=== PATIENT | female | born 1975 | race African-American/Black ===

== ENCOUNTER 2019-12-24 14:38 | Emergency (ER) | payer OTHER, SELFPAY ==
--- NOTE | ~2019-12-24 | XR_ITS ---
EXAMINATION: XR chest 2V DATE: 12/24/2019 15:26 INDICATION: Cough. Smoker. TECHNIQUE: frontal and lateral views of the chest were obtained. COMPARISON: None FINDINGS: The lungs are clear with no focal airspace opacities, pulmonary edema, pleural effusion or pneumothor ax. The cardiomediastinal silhouette is normal. Implantable hall monitor at the medial left anteri or chest wall. IMPRESSION: 1. No acute cardiopulmonary disease. Reviewed, dictated and finalized at location A.
[2019-12-24 14:50] VITALS: BP 134/76; PULSE 100; RESP 16; TEMP 36.4; O2SAT 100
--- NOTE | 2019-12-24 15:18 | ED.URI ---
HPI - URI/Sore Throat General Chief Complaint: Upper Respiratory Infection Stated Complaint: cough/vomiting/bodyaches Time Seen by Provider: 12/24/19 15:03 Source: patient and RN notes reviewed Mode of arrival: ambulatory Limitations: no limitations History of Present Illness HPI Narrative: Patient presents today with a 2-day history of productive cough, body aches, sweats and chills, vomiting, and diarrhea. Denies known fever, shortness of breath, sore throat. History of asthma, hypertension, diabetes. She has been using her albuterol inhaler at home, but has not been using any other [id number] medications for her current symptoms. She smokes 0.5 packs/day. MD elicited complaint: cough Related Data Home Medications Medication Instructions Recorded Confirmed aspirin 12/24/19 escitalopram oxalate mg 12/24/19 gabapentin 12/24/19 hydrochlorothiazide 12/24/19 insulin lispro protamin-lispro SUBCUT 12/24/19 [Humalog Mix 75-25(U-100)Insuln] lisinopril 12/24/19 metformin mg 12/24/19 naproxen 12/24/19 tramadol mg 12/24/19 Allergies Allergy/AdvReac Type Severity Reaction Status Date / Time No Known Allergies Allergy Verified 05/26/18 11:43 Review of Systems Review of Systems: Narrative: CONSTITUTIONAL: Denies fever. + Body aches, sweats, chills EYES: Denies visual changes, redness, or discharge. ENT: Denies rhinorrhea, congestion, sore throat, or otalgia. CARDIOVASCULAR: Denies chest pain, palpitations, or edema. RESPIRATORY: Denies dyspnea.+ Cough GASTROINTESTINAL: Denies abdominal pain. + Nausea, vomiting, diarrhea GENITOURINARY: Denies dysuria or hematuria. SKIN: Denies rash, itching, or wounds. MUSCULOSKELETAL: Denies back pain, joint pain, or myalgia. NEUROLOGIC: Denies headache, numbness, tingling, or weakness. PSYCH: Denies depression or anxiety. [facility] Past Medical History Medical History (Updated 12/24/19 @ 16:05 by Elise Toscano, [employer], ) Asthma Diabetes History of CVA (cerebrovascular accident) Hypertension Comments At time of signature, I have reviewed and agree with nursing past medical, surgical, social and family history unless otherwise noted. Please see nursing chart for further information. There is no relevant family history pertinent to the presenting complaint Exam Narrative: Exam Narrative: GENERAL: Ill-appearing, well-nourished, and in no acute distress. HEAD: Normocephalic, atraumatic. EYES: EOMI. No redness or drainage. Conjunctivae normal. ENT: Mucous membranes pink and moist. Nares clear. No rhinorrhea. TMs normal bilaterally. Throat normal. Uvula midline. NECK: Normal AROM. Supple. No lymphadenopathy. CHEST: No respiratory distress. Crackles in the right lower lobes, otherwise clear. HEART: Regular rate and rhythm. No murmur appreciated. Normal peripheral pulses. MUSCULOSKELETAL: No bony tenderness. EXTREMITIES: Normal range of motion. No edema. SKIN: Warm, dry, no rash. NEURO: No focal deficits. Alert and oriented x3. Gait steady. PSYCH: Normal affect. No signs of depression or anxiety. Course Course Emergency Course: 1602: Patient states her nausea has improved after the Zofran. Discussed chest x-ray results and plan for discharge. Vital Signs Vital signs: Vital Signs Temperature 97.6 F 12/24/19 14:50 Pulse Rate 100 12/24/19 14:50 Respiratory Rate 16 12/24/19 14:50 Blood Pressure 134/76 12/24/19 14:50 Pulse Oximetry 100 12/24/19 14:50 Temperature 97.6 F 12/24/19 14:50 Pulse Rate 100 12/24/19 14:50 Respiratory Rate 16 12/24/19 14:50 Blood Pressure 134/76 12/24/19 14:50 Pulse Oximetry 100 12/24/19 14:50 Reviewed. Pt has been instructed to follow up with her PCP regarding her elevated blood pressure today. MDM - URI/Sore Throat Differential Diagnosis Differential diagnosis: Likely upper respiratory infection, otitis media, viral infection, bronchitis, influenza and other (Pneumonia) Lab Data At
[2019-12-24] MEDS: ONDANSETRON HCL ODT 4 MG TABLET 8 MG SUBLINGUAL (15:25)
== END 2019-12-24 16:12 | disposition home or self-care (01) ==
PROVIDERS: Emergency Provider Nurse Practitioner; PCP Family Medicine
DX: B34.9 Viral infection, unspecified (principal); J45.909 Unspecified asthma, uncomplicated; E11.9 Type 2 diabetes mellitus without complications; I10 Essential (primary) hypertension; Z86.73 Personal history of transient ischemic attack (TIA), and cerebral infarction without residual deficits
CPT/HCPCS: 71046; 87804; 99213; A9270; G0463

== ENCOUNTER 2021-12-14 12:27 | Emergency (ER) | payer OTHER, SELFPAY ==
--- NOTE | ~2021-12-14 | XR_ITS ---
EXAMINATION: XR ankle RT min 3V INDICATION: Right ankle. TECHNIQUE: Right ankle pain and swelling COMPARISON: None available FINDINGS: Bone alignment is normal. There is no fracture. There is mild soft tissue swelling of ankle . Posterior and plantar calcaneal enthesophytes are noted. IMPRESSION: 1. Ankle soft tissue swelling without acute osseous abnormality. Reviewed, dictated and finalized at location B. [employer] TRANSCRIPTIONIST
--- NOTE | 2021-12-14 12:32 | ED.LOWEXIN ---
HPI - Extremity Injury (Lower) General Chief Complaint: Extremity Injury, Lower Stated Complaint: Right Ankle Pain Time Seen by Provider: 12/14/21 12:32 Source: patient, RN notes reviewed and old records reviewed Mode of arrival: ambulatory Limitations: no limitations History of Present Illness HPI Narrative: 46-year-old female presents to the [facility] with complaints of right ankle pain since tripping and rolling her ankle last night. Patient states that she tripped over her dog toys. Tenderness and swelling noted to the lateral right ankle. Positive pedal pulse. Sensation intact in all 5 toes distal and medial foot. Full range of motion of his toes. Decreased range of motion secondary to pain and swelling of the ankle. Patient states that her she has been working with her primary care provider for better control of her blood pressure. Medications currently being adjusted, states she did take her medications today MD complaint: ankle injury (Right) Related Data Home Medications Medication Instructions Recorded Confirmed aspirin 81 mg PO DAILY 12/24/19 12/14/21 hydrochlorothiazide 25 mg PO DAILY 12/24/19 12/14/21 insulin lispro protamin-lispro SUBCUT 12/24/19 [Humalog Mix 75-25(U-100)Insuln] lisinopril 40 mg PO DAILY 12/24/19 12/14/21 metformin 1,000 mg PO DAILY 12/24/19 12/14/21 albuterol sulfate 2 puff INHALATION DAILY 12/14/21 12/14/21 atorvastatin 40 mg PO DAILY 12/14/21 12/14/21 cyclobenzaprine 10 mg PO DAILY 12/14/21 12/14/21 fluconazole 150 mg PO DAILY 12/14/21 12/14/21 folic acid 1 mg PO DAILY 12/14/21 12/14/21 liraglutide [Victoza 3-Isak] 0.6 mg SUBCUT DAILY 12/14/21 12/14/21 metoprolol succinate 100 mg PO DAILY 12/14/21 12/14/21 niacin 500 mg PO DAILY 12/14/21 12/14/21 verapamil 40 mg PO DAILY 12/14/21 12/14/21 Allergies Allergy/AdvReac Type Severity Reaction Status Date / Time No Known Allergies Allergy Verified 12/14/21 12:42 Review of Systems Review of Systems: All systems reviewed & are unremarkable except as noted in HPI and below Constitutional: Constitutional: Reports no additional constitutional complaints, Denies chills and Denies fever(s) Eyes: Eyes: Reports no additional eye complaints ENT: Reports system reviewed and no additional complaints, except as documented Cardiovascular: Cardiovascular: Reports no additional cardiovascular complaints Respiratory: Respiratory: Reports no additional respiratory complaints, Denies cough and Denies dyspnea Gastrointestinal: Gastrointestinal: Reports no additional gastrointestinal complaints and Denies abdominal pain Musculoskeletal: Musculoskeletal: Reports as per HPI, Reports arthralgias (Right lateral ankle) and Reports joint swelling (Right lateral ankle) Integumentary/Breasts: Skin/Breast: Reports system reviewed and no additional complaints, except as docu Neurologic: Reports system reviewed and no additional complaints, except as documented Psychiatric: Psychiatric: Reports no additional psychiatric complaints Allergic/Immunologic: Allergic/Immunologic: Reports no additional allergic/immunologic complaints PMFSH Past Medical History Medical History Asthma Diabetes History of CVA (cerebrovascular accident) Hypertension Comments At the time of my signature, I reviewed and agree with the nursing past medical, surgical, social, and family history. There is no relevant family history pertinent to the patient complaint. Exam Const: General: healthy appearing, no acute distress and alert Nutritional Appearance: well nourished Orientation/consciousness: patient oriented x3 Limitations: no limitations HENMT: Head: normal to inspection Ears: external ears normal Eyes: Pupils: Equal, round and reactive pupils present Neck: Neck: normal visual inspection, no lymphadenopathy and no meningeal signs Chest: Chest palpation & inspection: normal inspection of the chest Resp: Effort
[2021-12-14 12:37] VITALS: BP 177/124; PULSE 89; RESP 16; TEMP 36.5; O2SAT 100
== END 2021-12-14 13:20 | disposition home or self-care (01) ==
PROVIDERS: Emergency Provider Nurse Practitioner; PCP Family Medicine
DX: S93.401A Sprain of unspecified ligament of right ankle, initial encounter (principal); S96.911A Strain of unspecified muscle and tendon at ankle and foot level, right foot, initial encounter; X50.9XXA Other and unspecified overexertion or strenuous movements or postures, initial encounter; Z79.82 Long term (current) use of aspirin; J45.909 Unspecified asthma, uncomplicated; E11.9 Type 2 diabetes mellitus without complications; I10 Essential (primary) hypertension; Z86.73 Personal history of transient ischemic attack (TIA), and cerebral infarction without residual deficits
CPT/HCPCS: 73610; 99213; G0463

== ENCOUNTER 2022-06-10 11:38 | Emergency (ER) | payer OTHER, SELFPAY ==
[2022-06-10 12:00] VITALS: BP 127/81; PULSE 106; RESP 24; TEMP 36.2; O2SAT 100
--- NOTE | 2022-06-10 12:24 | ED.NAVMDI ---
HPI - Nausea/Vomiting/Diarrhea General Chief complaint: Nausea/Vomiting/Diarrhea Stated complaint: n/v/d weakness/sob Time Seen by Provider: 06/10/22 12:05 Source: patient, RN notes reviewed and old records reviewed Mode of arrival: ambulatory Limitations: no limitations History of Present Illness HPI Narrative: 46-year-old female who presents to express care with complaints of nausea and vomiting, diarrhea for the past 2 days. Patient reports that she feels weak, has headache, body aches, and cough with some chest tightness. Patient reports that she was up all night with diarrhea and last episode of vomiting was 1 hour ago. Patient is diabetic and fingerstick per blood sugar registers HI on our monitor. Patient reports that she feels very weak. Patient reports that she did not take her insulin today.Patient also reports that she started her menses 2 days ago and has not had period for over a year. MD elicited complaint: nausea, vomiting, diarrhea and other (diabetic) Pertinent past history: other (diabetic) Onset (ago): day(s) (2) Description of vomiting: food contents Description of diarrhea: watery Associated nausea: Yes Treatment prior to arrival: other (Mucinex and Tylenol) Related Data Home Medications Medication Instructions Recorded Confirmed aspirin 81 mg tablet,delayed 81 mg PO DAILY 12/24/19 06/10/22 release hydrochlorothiazide 25 mg tablet 25 mg PO DAILY 12/24/19 06/10/22 insulin lispro protamine-lispro See Rx Instructions .Route 12/24/19 06/10/22 100 unit/mL (75-25) subcutaneous .COMPLEX diabetes susp (Humalog Mix 75-25(U-100)Insuln) lisinopril 40 mg tablet 40 mg PO DAILY 12/24/19 06/10/22 metformin 1,000 mg tablet 1,000 mg PO DAILY 12/24/19 06/10/22 albuterol sulfate 90 mcg/actuation 2 puff inhalation DAILY 12/14/21 06/10/22 aerosol inhaler atorvastatin 40 mg tablet 40 mg PO DAILY 12/14/21 06/10/22 folic acid 1 mg tablet 1 mg PO DAILY 12/14/21 06/10/22 liraglutide 0.6 mg/0.1 mL (18 mg/3 0.6 mg subcut DAILY 12/14/21 06/10/22 mL) subcutaneous pen injector (Victoza 3-Isak) metoprolol succinate 100 mg 100 mg PO DAILY 12/14/21 06/10/22 tablet,extended release 24 hr niacin 500 mg tablet 500 mg PO DAILY 12/14/21 06/10/22 gabapentin 600 mg tablet 600 mg PO DAILY 06/10/22 06/10/22 nitroglycerin 0.4 mg sublingual 0.4 mg sublingual PRN PRN Angina 06/10/22 06/10/22 tablet omeprazole 20 mg capsule,delayed 20 mg PO DAILY 06/10/22 06/10/22 release Allergies Allergy/AdvReac Type Severity Reaction Status Date / Time No Known Allergies Allergy Verified 06/10/22 12:05 Review of Systems Review of Systems: CONSTITUTIONAL: Denies fever, chills, or sweats. EYES: Denies visual changes, redness, or discharge. ENT: Denies rhinorrhea, congestion, sore throat, or otalgia. CARDIOVASCULAR: Denies chest pain, palpitations, or edema, states some chest tightness with cough RESPIRATORY: positive cough denies dyspnea. GASTROINTESTINAL: Positive for mid abdominal cramping, nausea, vomiting, or diarrhea. GENITOURINARY: Denies dysuria or hematuria. SKIN: Denies rash or itching. MUSCULOSKELETAL: Denies back pain, joint pain, reports body aches NEUROLOGIC: Positive headache,no numbness, positive for weakness. PSYCHIATRIC: Positive for history of anxiety or depression. 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
[2022-06-10 12:42] LABS: Glucose Point of Care > 500 mg/dl (65-105)
== END 2022-06-10 13:25 | disposition short-term general hospital (02) ==
PROVIDERS: Emergency Provider Registered Nurse; PCP Family Medicine
DX: K52.9 Noninfective gastroenteritis and colitis, unspecified (principal); E11.649 Type 2 diabetes mellitus with hypoglycemia without coma; Z20.822 Contact with and (suspected) exposure to COVID-19; F17.210 Nicotine dependence, cigarettes, uncomplicated; J45.909 Unspecified asthma, uncomplicated; I10 Essential (primary) hypertension; Z86.73 Personal history of transient ischemic attack (TIA), and cerebral infarction without residual deficits; Z79.82 Long term (current) use of aspirin; Z79.4 Long term (current) use of insulin; Z79.84 Long term (current) use of oral hypoglycemic drugs
CPT/HCPCS: 81003; 81025; 82948; 87426; 87804; 99215; C9803; G0463

== ENCOUNTER 2023-03-17 11:04 | Emergency (ER) | payer OTHER, SELFPAY ==
[2023-03-17 11:10] VITALS: BP 180/91; PULSE 63; RESP 16; TEMP 35.9; O2SAT 98
[2023-03-17 11:13] VITALS: BP 180/91; PULSE 63; RESP 98; TEMP 35.9; O2SAT 98
--- NOTE | 2023-03-17 11:13 | ED.EYEPROB ---
HPI - Eye Problem General Chief complaint: Eye Problems Stated complaint: Right Eye Irritation Source: patient and RN notes reviewed History of Present Illness HPI Narrative: 47 yo F Presents to urgent care with complaints of right eye swelling and drainage this morning. Pt states she noticed some irritation last night in the right eye but went to bed. Pt denies any visual disturbance or eye pain. Pt does not wear contacts. Pt denies any other symptoms. Related Data Home Medications Medication Instructions Recorded Confirmed aspirin 81 mg tablet,delayed 81 mg PO DAILY 12/24/19 03/17/23 release hydrochlorothiazide 25 mg tablet 25 mg PO DAILY 12/24/19 03/17/23 lisinopril 40 mg tablet 40 mg PO DAILY 12/24/19 03/17/23 metformin 1,000 mg tablet 1,000 mg PO DAILY 12/24/19 03/17/23 albuterol sulfate 90 mcg/actuation 2 puff inhalation DAILY 12/14/21 03/17/23 aerosol inhaler atorvastatin 40 mg tablet 40 mg PO DAILY 12/14/21 03/17/23 folic acid 1 mg tablet 1 mg PO DAILY 12/14/21 03/17/23 liraglutide 0.6 mg/0.1 mL (18 mg/3 0.6 mg subcut DAILY 12/14/21 03/17/23 mL) subcutaneous pen injector ([employer] 3-Isak) metoprolol succinate 100 mg 100 mg PO DAILY 12/14/21 03/17/23 tablet,extended release 24 hr niacin 500 mg tablet 500 mg PO DAILY 12/14/21 03/17/23 gabapentin 600 mg tablet 600 mg PO DAILY 06/10/22 03/17/23 nitroglycerin 0.4 mg sublingual 0.4 mg sublingual PRN PRN Angina 06/10/22 03/17/23 tablet omeprazole 20 mg capsule,delayed 20 mg PO DAILY 06/10/22 03/17/23 release amlodipine 10 mg tablet mg 03/17/23 glimepiride 2 mg tablet mg 03/17/23 insulin glargine 100 unit/mL (3 unit subcut 03/17/23 03/17/23 mL) subcutaneous pen (Lantus Solostar U-100 Insulin) tramadol 50 mg tablet mg 03/17/23 Allergies Allergy/AdvReac Type Severity Reaction Status Date / Time No Known Allergies Allergy Verified 03/17/23 11:11 Review of Systems Review of Systems: CONSTITUTIONAL: Denies fever, chills, or sweats. EYES: Denies visual changes, redness. Reports yellow crusty drainage this morning and swellingto right eye. ENT: Denies otalgia and sore throat CARDIOVASCULAR: Denies chest pain, palpitations, or edema. RESPIRATORY: Denies cough or dyspnea. GASTROINTESTINAL: Denies abdominal pain, nausea, vomiting, or diarrhea. GENITOURINARY: Denies dysuria or hematuria. SKIN: Denies rash or itching. MUSCULOSKELETAL: Denies back pain, joint pain, or myalgia. NEUROLOGIC: Denies headache, numbness, or weakness. Pertinent positives per HPI. 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 Previous section Family History Family History (Updated 06/13/22 @ 09:27 by Areli Alexandre NP) Other Hypertension Social History Social History (Updated 06/13/22 @ 09:28 by Areli Alexandre NP) Smoking packs per day: 1 Smoking cigarettes per day: 20.0 Years smoked: 25 Smoking pack-years: 25.00 Smoking status: Current every day smoker Tobacco type: cigarettes Alcohol intake: unknown Substance use type: does not use Living arrangements: with family Gender identity (if verbalized by the patient): Female Comments At the time of my signature, I reviewed and agree with the nursing past medical, surgical, social, and family history. There is no relevant family history pertinent to the patient complaint. Exam Narrative: GENERAL: This is a well-nourished, well-developed patient, in no apparent distress. HEAD: normocephalic, atraumatic. EYES: Sclera clear/white. Vision is grossly intact. Right upper eyelid and surrounding orbit noted to be moderately edematous. Conjunctivae is not
== END 2023-03-17 11:27 | disposition home or self-care (01) ==
PROVIDERS: Emergency Provider Nurse Practitioner Family; PCP Family Medicine
DX: L03.213 Periorbital cellulitis (principal); F17.210 Nicotine dependence, cigarettes, uncomplicated; J45.909 Unspecified asthma, uncomplicated; E11.9 Type 2 diabetes mellitus without complications; I10 Essential (primary) hypertension; Z86.73 Personal history of transient ischemic attack (TIA), and cerebral infarction without residual deficits; Z79.82 Long term (current) use of aspirin; Z79.84 Long term (current) use of oral hypoglycemic drugs; Z79.4 Long term (current) use of insulin
CPT/HCPCS: 99213; G0463

== ENCOUNTER 2024-03-08 13:17 | Emergency (ER) | payer SELFPAY ==
--- NOTE | 2024-03-08 13:21 | ED.GENADULT ---
HPI - General Adult General Chief complaint: Neuro Symptoms/Deficit Stated complaint: left arm going numb,DOMINGO, BP may be up Time Seen by Provider: 03/08/24 13:21 Source: patient Mode of arrival: ambulatory Limitations: no limitations History of Present Illness HPI narrative: Patient is a 48-year-old female who presents with headache, left arm numbness and tingling along with increased weakness. Symptoms started at 10:30 a.m. this morning. Patient has history of multiple strokes with last 1 being in July, did receive clot buster at that time. Patient has history of AFib and has a loop recorder that has thrown clots in the past. Denies any slurred speech or difficulty finding words. Related Data Home Medications Medication Instructions Recorded Confirmed aspirin 81 mg tablet,delayed 81 mg PO DAILY 12/24/19 03/08/24 release hydrochlorothiazide 25 mg tablet 25 mg PO DAILY 12/24/19 03/17/23 lisinopril 40 mg tablet 40 mg PO DAILY 12/24/19 03/17/23 metformin 1,000 mg tablet 1,000 mg PO DAILY 12/24/19 03/17/23 albuterol sulfate 90 mcg/actuation 2 puff inhalation DAILY 12/14/21 03/17/23 aerosol inhaler atorvastatin 40 mg tablet 40 mg PO DAILY 12/14/21 03/17/23 folic acid 1 mg tablet 1 mg PO DAILY 12/14/21 03/17/23 liraglutide 0.6 mg/0.1 mL (18 mg/3 0.6 mg subcut DAILY 12/14/21 03/17/23 mL) subcutaneous pen injector (Victoza 3-Isak) metoprolol succinate 100 mg 100 mg PO DAILY 12/14/21 03/17/23 tablet,extended release 24 hr niacin 500 mg tablet 500 mg PO DAILY 12/14/21 03/17/23 gabapentin 600 mg tablet 600 mg PO DAILY 06/10/22 03/17/23 nitroglycerin 0.4 mg sublingual 0.4 mg sublingual PRN PRN Angina 06/10/22 03/17/23 tablet omeprazole 20 mg capsule,delayed 20 mg PO DAILY 06/10/22 03/17/23 release amlodipine 10 mg tablet 10 mg DIRECTED 03/17/23 03/08/24 glimepiride 2 mg tablet mg 03/17/23 insulin glargine 100 unit/mL (3 unit subcut 03/17/23 03/17/23 mL) subcutaneous pen (Lantus Solostar U-100 Insulin) tramadol 50 mg tablet 50 mg DIRECTED 03/17/23 03/08/24 Allergies Allergy/AdvReac Type Severity Reaction Status Date / Time No Known Allergies Allergy Verified 03/17/23 11:11 Review of Systems Review of Systems: All systems reviewed & are unremarkable except as noted in HPI and below Constitutional: Constitutional: Denies body ache(s), Denies chills, Denies fatigue, Denies fever(s), Reports headache(s), Denies malaise and Denies weakness Eyes: Eyes: Denies blurry vision, Denies irritation and Denies loss of vision ENT: Denies otalgia, Denies headache(s), Denies nasal discharge, Denies sinus pain and Denies sore throat Cardiovascular: Cardiovascular: Denies chest pain, Denies irregular heart rhythm and Denies dyspnea Respiratory: Respiratory: Denies dyspnea Gastrointestinal: Gastrointestinal: Denies abdominal pain, Denies melena, Denies hematochezia, Denies diarrhea, Denies nausea and Denies vomiting Musculoskeletal: Musculoskeletal: Denies back pain, Denies myalgias, Denies arthralgias, Reports muscle weakness, Reports numbness and Reports tingling Integumentary/Breasts: Skin/Breast: Denies pruritus and Denies rash Neurologic: Denies headache(s), Denies loss of vision and Denies weakness Psychiatric: Psychiatric: Reports no additional psychiatric complaints Endocrine: Endocrine: Denies fatigue PMFSH Past Medical History Medical History Asthma Diabetes History of CVA (cerebrovascular accident) Hypertension Surgical History Surgical History History of appendectomy History of intestinal surgery 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
[2024-03-08 13:28] VITALS: BP 156/87; PULSE 82; RESP 16; TEMP 36.6; O2SAT 100
== END 2024-03-08 13:36 | disposition short-term general hospital (02) ==
PROVIDERS: Emergency Provider Nurse Practitioner Family; PCP Family Medicine
DX: R51.9 Headache, unspecified (principal); R20.0 Anesthesia of skin; R20.2 Paresthesia of skin; R29.810 Facial weakness; F17.210 Nicotine dependence, cigarettes, uncomplicated; J45.909 Unspecified asthma, uncomplicated; E11.9 Type 2 diabetes mellitus without complications; Z79.4 Long term (current) use of insulin; Z79.84 Long term (current) use of oral hypoglycemic drugs; I10 Essential (primary) hypertension; Z86.73 Personal history of transient ischemic attack (TIA), and cerebral infarction without residual deficits; Z79.82 Long term (current) use of aspirin
CPT/HCPCS: 99215; G0463

== ENCOUNTER 2024-10-24 12:27 | Emergency (ER) | payer OTHER, SELFPAY ==
--- NOTE | 2024-10-24 12:34 | ED_ITS ---
HPI - Back Pain/Injury General Chief Complaint: Back Pain/Injury Stated Complaint: back pain /left leg pain Time Seen by Provider: 10/24/24 13:02 Source: patient and RN notes reviewed Mode of arrival: ambulatory Limitations: no limitations History of Present Illness HPI Narrative: 49-year-old female presents concern for left low back pain that radiates down the left leg. Reports yesterday she slipped on the ice and caught herself without falling and started having this back pain. Reports that worsens with certain movements, positions. She reports she took ibuprofen 800 mg twice. She denies loss of bowel or bladder function, perianal anesthesia, weakness in any extremity, abdominal pain. MD elicited complaint: back pain Related Data Home Medications ?Medication ?Instructions ?Recorded ?Confirmed ?Last Taken ?Type aspirin 81 mg tablet,delayed 81 mg PO DAILY 12/24/19 03/08/24 Unknown History release hydrochlorothiazide 25 mg tablet 25 mg PO DAILY 12/24/19 03/17/23 Unknown History lisinopril 40 mg tablet 40 mg PO DAILY 12/24/19 03/17/23 Unknown History metformin 1,000 mg tablet 1,000 mg PO DAILY 12/24/19 03/17/23 Unknown History albuterol sulfate 90 mcg/actuation 2 puff inhalation DAILY 12/14/21 03/17/23 Unknown History aerosol inhaler atorvastatin 40 mg tablet 40 mg PO DAILY 12/14/21 03/17/23 Unknown History folic acid 1 mg tablet 1 mg PO DAILY 12/14/21 03/17/23 Unknown History liraglutide 0.6 mg/0.1 mL (18 mg/3 0.6 mg subcut DAILY 12/14/21 03/17/23 Unknown History mL) subcutaneous pen injector (Victoza 3-Isak) metoprolol succinate 100 mg 100 mg PO DAILY 12/14/21 03/17/23 Unknown History tablet,extended release 24 hr niacin 500 mg tablet 500 mg PO DAILY 12/14/21 03/17/23 Unknown History gabapentin 600 mg tablet 600 mg PO DAILY 06/10/22 03/17/23 Unknown History nitroglycerin 0.4 mg sublingual 0.4 mg sublingual PRN PRN Angina 06/10/22 03/17/23 Unknown History tablet omeprazole 20 mg capsule,delayed 20 mg PO DAILY 09/01/22 06/08/23 Unknown History release amlodipine 10 mg tablet 10 mg DIRECTED 03/17/23 03/08/24 Unknown History glimepiride 2 mg tablet mg 03/17/23 Unknown History insulin glargine 100 unit/mL (3 unit subcut 03/17/23 03/17/23 Unknown History mL) subcutaneous pen (Lantus Solostar U-100 Insulin) tramadol 50 mg tablet 50 mg DIRECTED 03/17/23 03/08/24 Unknown History Allergies Allergy/AdvReac Type Severity Reaction Status Date / Time No Known Allergies Allergy Verified 10/24/24 12:49 Review of Systems Review of Systems: CONSTITUTIONAL: Denies malaise, chills, sweats, or fever. CARDIOVASCULAR: Denies chest pain, palpitations, or edema. RESPIRATORY: Denies cough or dyspnea. GASTROINTESTINAL: Denies abdominal pain, nausea, vomiting, diarrhea, loss of bowel function GENITOURINARY: Denies dysuria, hematuria, frequency, loss of bladder function. SKIN: Denies rash or itching. MUSCULOSKELETAL: Reports left low back pain that radiates to the left leg NEUROLOGIC: Denies numbness, weakness, or headache. 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 There is no relevant family history pertinent to the presenting complaint Exam Narrative: GENERAL: Well-appearing, well-nourished, and in no acute distress. HEAD: Normocephalic, atraumatic. EYES: PERRLA and EOMI. NECK: Supple. No lymphadenopathy. CHEST: Clear to auscultation. No respiratory distress. HEART: Regular rate and rhythm. Distal pulses palpable and equal, cap refill <3 seconds ABDOMEN: Soft, nontender, nondistended, normal active bowel sounds, no palpable or pulsatile masses. No CVA tenderness MUSCULOSKELETAL: Normal range of motion and strength in all extremities; 5/5 strength with hip flexion and extension, dorsiflexion and extension, knee flexion and extension, plantar flexion and extension. Normal sensation in dermatomal distributions with sensitivity to light touch and pain. No midline back tenderness to palpation. No paraspinal tenderness. Transfers from lying to sitting to standing. SKIN: Warm, dry, no rash. No ecchymosis, erythema, open wounds to back. NEURO: No focal deficits. Alert and oriented x3. Reflexes intact. Normal gait. PSYCH: Normal mood and affect Course Course Emergency Course: Patient is aware of diagnosis, understands and agrees to treatment plan. Anticipatory guidance given. Patient agrees to follow-up as directed and is aware of reasons to seek care at the emergency department. Portions of this record may have been created with voice recognition software Level of Care: Express Care Visit Vital Signs Vital signs: Reviewed. MDM - Back Pain/Injury MDM Narrative Medical decision making narrative: I evaluated this in the [facility] care. History is obtained from patient who is an independent historian and physical exam was performed.? Available medical records were reviewed. ? Exam findings and relevant testing show no acute concerns or changes; patient is non-toxic appearing and is in no distress. No risk factors or findings concerning for epidural abscess, diskitis, vertebral osteomyelitis, cord compression, cauda equina, vertebral fracture or bone malignancy, AAA, or pyelonephritis. Patient instructed to consider further imaging and workup through their primary care physician as an outpatient if symptoms persist. ? Differential diagnosis and treatment plan were discussed with the patient. Patient agrees with discussion and after shared medical decision making agrees with plan of care. All questions were answered to the patient's satisfaction. Patient is appropriate for outpatient treatment and follow-up. Critical Care Time Critical Care Time Critical Care Time: No Discharge Plan Discharge Clinical Impression: Nonspecific low back pain Patient Disposition: Home, Self-Care Condition: Stable Instructions: Acute Low Back Pain (ED) Additional Instructions: Please follow up with your Primary Care Doctor within 48-72 hours - call for an appointment. Walking and other gentle exercising several times a week has been shown to improve back pain; bed rest is not recommended. Take prednisone, take muscle relaxers every 8 hours as needed for muscle spasm- do not drive or make any important decisions while on this medication for it can make you drowsy. You may ice to the area as needed. If you experience any worsening pain, swelling, numbness, weakness please go to ER. Contact your doctor or go to the emergency department if you develop problems with bladder or bowel function, weakness or loss of feeling in one or both of your legs, or any other serious concerns. Patient Language: Ugandan Prescriptions: New prednisone 20 mg tablet 40 mg PO DAILY 5 Days Qty: 10 0RF baclofen 10 mg tablet 10 mg PO TID Qty: 20 0RF No Action aspirin 81 mg tablet,delayed release (DR/EC) 81 mg PO DAILY metformin 1,000 mg tablet 1,000 mg PO DAILY hydrochlorothiazide 25 mg tablet 25 mg PO DAILY lisinopril 40 mg tablet 40 mg PO DAILY atorvastatin 40 mg tablet 40 mg PO DAILY metoprolol succinate 100 mg tablet extended release 24 hr 100 mg PO DAILY niacin 500 mg tablet 500 mg PO DAILY folic acid 1 mg tablet 1 mg PO DAILY albuterol sulfate 90 mcg/actuation HFA aerosol inhaler 2 puff INHALATION DAILY Victoza 3-Isak 0.6 mg/0.1 mL (18 mg/3 mL) pen injector 0.6 mg SUBCUT DAILY gabapentin 600 mg tablet 600 mg PO DAILY nitroglycerin 0.4 mg tablet, sublingual 0.4 mg sublingual PRN PRN (Reason: Angina) omeprazole 20 mg capsule,delayed release(DR/EC) 20 mg PO DAILY amlodipine 10 mg tablet 10 mg DIRECTED insulin glargine [Lantus Solostar U-100 Insulin] 100 unit/mL (3 mL) insulin pen SUBCUT tramadol 50 mg tablet 50 mg DIRECTED glimepiride 2 mg tablet Follow-up/Referrals: Byron,Eriberto Malone MD [Primary Care Provider] - Stand Alone Forms: Work/School Release IP Time of Disposition: 13:11
[2024-10-24 12:40] VITALS: BP 175/90; PULSE 74; RESP 16; TEMP 36.5; O2SAT 98
== END 2024-10-24 13:14 | disposition home or self-care (01) ==
PROVIDERS: Emergency Provider Nurse Practitioner; PCP Family Medicine
DX: M54.50 Low back pain, unspecified (principal); F17.210 Nicotine dependence, cigarettes, uncomplicated; E11.9 Type 2 diabetes mellitus without complications; Z79.84 Long term (current) use of oral hypoglycemic drugs; Z79.4 Long term (current) use of insulin; I10 Essential (primary) hypertension; J45.909 Unspecified asthma, uncomplicated; Z86.73 Personal history of transient ischemic attack (TIA), and cerebral infarction without residual deficits; Z79.82 Long term (current) use of aspirin
CPT/HCPCS: 99213; G0463

== ENCOUNTER 2025-07-23 11:26 | Emergency (ER) | payer OTHER, SELFPAY ==
[2025-07-23 11:38] VITALS: BP 144/86; PULSE 77; RESP 20; TEMP 36.2; O2SAT 98
--- NOTE | 2025-07-23 11:42 | ED.NAVMDI ---
HPI - Nausea/Vomiting/Diarrhea General Chief complaint: Upper Respiratory Infection Stated complaint: Bodyaches/Vomiting Source: patient and RN notes reviewed Mode of arrival: ambulatory Limitations: no limitations History of Present Illness MD elicited complaint: nausea, vomiting and diarrhea Related Data Home Medications ?Medication ?Instructions ?Recorded ?Confirmed ?Last Taken ?Type aspirin 81 mg tablet,delayed 81 mg PO DAILY 12/24/19 03/08/24 Unknown History release hydrochlorothiazide 25 mg tablet 25 mg PO DAILY 12/24/19 03/17/23 Unknown History lisinopril 40 mg tablet 40 mg PO DAILY 12/24/19 03/17/23 Unknown History metformin 1,000 mg tablet 1,000 mg PO DAILY 12/24/19 03/17/23 Unknown History albuterol sulfate 90 mcg/actuation 2 puff inhalation DAILY 12/14/21 03/17/23 Unknown History aerosol inhaler atorvastatin 40 mg tablet 40 mg PO DAILY 12/14/21 03/17/23 Unknown History folic acid 1 mg tablet 1 mg PO DAILY 12/14/21 03/17/23 Unknown History liraglutide 0.6 mg/0.1 mL (18 mg/3 0.6 mg subcut DAILY 12/14/21 03/17/23 Unknown History mL) subcutaneous pen injector ([employer] 3-Isak) metoprolol succinate 100 mg 100 mg PO DAILY 12/14/21 03/17/23 Unknown History tablet,extended release 24 hr niacin 500 mg tablet 500 mg PO DAILY 12/14/21 03/17/23 Unknown History gabapentin 600 mg tablet 600 mg PO DAILY 06/10/22 03/17/23 Unknown History nitroglycerin 0.4 mg sublingual 0.4 mg sublingual PRN PRN Angina 06/10/22 03/17/23 Unknown History tablet omeprazole 20 mg capsule,delayed 20 mg PO DAILY 06/10/22 03/17/23 Unknown History release amlodipine 10 mg tablet 10 mg DIRECTED 03/17/23 03/08/24 Unknown History glimepiride 2 mg tablet mg 03/17/23 Unknown History insulin glargine 100 unit/mL (3 unit subcut 03/17/23 03/17/23 Unknown History mL) subcutaneous pen (Lantus Solostar U-100 Insulin) tramadol 50 mg tablet 50 mg DIRECTED 03/17/23 03/08/24 Unknown History Allergies Allergy/AdvReac Type Severity Reaction Status Date / Time No Known Allergies Allergy Verified 07/23/25 11:30 Review of Systems Review of Systems: CONSTITUTIONAL: Denies malaise, chills, sweats, or fever. ENT: Denies rhinorrhea, congestion, sinus pain, otalgia or sore throat. CARDIOVASCULAR: Denies chest pain, palpitations, or edema. RESPIRATORY: Denies cough or dyspnea. GASTROINTESTINAL: Denies abdominal pain, nausea, vomiting, diarrhea, bloody, or mucous stools. GENITOURINARY: Denies dysuria or hematuria. MUSCULOSKELETAL: Denies myalgia. NEUROLOGIC: Denies headache. 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 There is no relevant family history pertinent to the presenting complaint Exam Narrative: GENERAL: Well-appearing, well-nourished, and in no acute distress. HEAD: Normocephalic, atraumatic. EYES: PERRLA, conjunctivae clear, and EOMI. ENT: Nares clear, turbinates pink, no rhinorrhea or epistaxis. Mucous membranes moist. Oropharynx without edema, erythema, or lesions. Tonsils not enlarged and without exudate. NECK: Supple. No lymphadenopathy CHEST: Speaks in full sentences. No respiratory distress. HEART: Regular rate and rhythm. ABDOMEN: Soft, flat, nondistended, nontender. No guarding, rebound tenderness, or rigidity. No pulsatile masses. Bowel sounds present in all four quadrants. No organomegaly. Negative Lucas?s sign. No periumbilical tenderness. No Supra public tenderness or distension. Good femoral pulses bilaterally. No hernia noted. No scars or surface trauma. SKIN: Warm, dry, no rash. NEURO: Alert and oriented x3. PSYCH: Normal mood and affect Course Course Emergency Course: Patient is aware of diagnosis, understands and agrees to treatment plan. Anticipatory guidance given. Patient agrees to follow-up as directed and is aware of reasons to seek care at the emergency department. Portions of this record may have been created with voice recognition software Level of Care: Express Care Visit Vital Signs Vital signs: Vital Signs Temperature 97.2 F L 07/23/25 11:38 Pulse Rate 77 07/23/25 11:38 Respiratory Rate 20 07/23/25 11:38 Blood Pressure 144/86 H 07/23/25 11:38 Pulse Oximetry 98 07/23/25 11:38 Oxygen Delivery Room Air 07/23/25 11:38 Temperature 97.2 F L 07/23/25 11:38 Pulse Rate 77 07/23/25 11:38 Respiratory Rate 20 07/23/25 11:38 Blood Pressure 144/86 H 07/23/25 11:38 Pulse Oximetry 98 07/23/25 11:38 Oxygen Delivery Room Air 07/23/25 11:38 Reviewed. MDM - Nausea/Vomiting/Diarrhea MDM Narrative Medical decision making narrative: No evidence of pancreatitis, AAA, cholecystitis, choledocholithiasis, cholangitis, mesenteric ischemia, small bowel obstruction, diverticulitis, colitis, appendicitis, or pelvic etiology such as ovarian/testicular torsion, TOA, or ectopic . Patient has no history of peptic ulcer, H. pylori, chronic aspirin NSAID or corticosteroid use, chronic alcohol use, no history of inflammatory bowel disease, no history of active abdominal infection or malignancy. Patient has no history of hernia or intra-abdominal surgeries, patient denies absence of flatus, constipation, melena, hematemesis. Patient denies post-prandial pain. No pain-out of proportion. Exam findings show no acute concerns or changes; patient is non-toxic appearing and is in no distress. Patient is appropriate for outpatient treatment and follow-up. Critical Care Time Critical Care Time Critical Care Time: No Discharge Plan Discharge Patient Language: Slovak Prescriptions: No Action aspirin 81 mg tablet,delayed release (DR/EC) 81 mg PO DAILY metformin 1,000 mg tablet 1,000 mg PO DAILY hydrochlorothiazide 25 mg tablet 25 mg PO DAILY lisinopril 40 mg tablet 40 mg PO DAILY atorvastatin 40 mg tablet 40 mg PO DAILY metoprolol succinate 100 mg tablet extended release 24 hr 100 mg PO DAILY niacin 500 mg tablet 500 mg PO DAILY folic acid 1 mg tablet 1 mg PO DAILY albuterol sulfate 90 mcg/actuation HFA aerosol inhaler 2 puff INHALATION DAILY Victoza 3-Isak 0.6 mg/0.1 mL (18 mg/3 mL) pen injector 0.6 mg SUBCUT DAILY gabapentin 600 mg tablet 600 mg PO DAILY nitroglycerin 0.4 mg tablet, sublingual 0.4 mg sublingual PRN PRN (Reason: Angina) omeprazole 20 mg capsule,delayed release(DR/EC) 20 mg PO DAILY amlodipine 10 mg tablet 10 mg DIRECTED insulin glargine [Lantus Solostar U-100 Insulin] 100 unit/mL (3 mL) insulin pen SUBCUT tramadol 50 mg tablet 50 mg DIRECTED glimepiride 2 mg tablet Follow-up/Referrals: Byron,Eriberto Malone MD [Primary Care Provider]
[2025-07-23 11:57] LABS: EDCOVIDSCREEN Negative (Negative); EDINFLUASCREEN Negative (Negative); EDINFLUBSCREEN Negative (Negative)
--- NOTE | 2025-07-23 12:07 | ED.URI ---
HPI - URI/Sore Throat General Chief Complaint: Upper Respiratory Infection Stated Complaint: Bodyaches/Vomiting Time Seen by Provider: 07/23/25 11:50 Source: patient and RN notes reviewed Mode of arrival: ambulatory Limitations: no limitations History of Present Illness HPI Narrative: 49-year-old female presents with concern for 5 day history of body aches, headache, nasal congestion, rhinorrhea, cough, nausea and vomiting. She has taken some [id number] medications without relief. MD elicited complaint: cough and sore throat Related Data Home Medications ?Medication ?Instructions ?Recorded ?Confirmed ?Last Taken ?Type aspirin 81 mg tablet,delayed 81 mg PO DAILY 12/24/19 07/23/25 Unknown History release hydrochlorothiazide 25 mg tablet 25 mg PO DAILY 12/24/19 07/23/25 Unknown History lisinopril 40 mg tablet 40 mg PO DAILY 12/24/19 07/23/25 Unknown History albuterol sulfate 90 mcg/actuation 2 puff inhalation DAILY 12/14/21 07/23/25 Unknown History aerosol inhaler atorvastatin 40 mg tablet 40 mg PO DAILY 12/14/21 07/23/25 Unknown History folic acid 1 mg tablet 1 mg PO DAILY 12/14/21 07/23/25 Unknown History liraglutide 0.6 mg/0.1 mL (18 mg/3 0.6 mg subcut DAILY 12/14/21 07/23/25 Unknown History mL) subcutaneous pen injector (Victoza 3-Isak) niacin 500 mg tablet 500 mg PO DAILY 12/14/21 07/23/25 Unknown History gabapentin 600 mg tablet 600 mg PO DAILY 06/10/22 07/23/25 Unknown History nitroglycerin 0.4 mg sublingual 0.4 mg sublingual PRN PRN Angina 06/10/22 07/23/25 Unknown History tablet omeprazole 20 mg capsule,delayed 20 mg PO DAILY 06/10/22 07/23/25 Unknown History release insulin glargine 100 unit/mL (3 unit subcut 03/17/23 03/17/23 Unknown History mL) subcutaneous pen (Lantus Solostar U-100 Insulin) tramadol 50 mg tablet 50 mg PO DIRECTED 03/17/23 07/23/25 Unknown History clopidogrel 75 mg tablet mg 07/23/25 Unknown History nifedipine 60 mg tablet,extended mg PO 07/23/25 Unknown History release Allergies Allergy/AdvReac Type Severity Reaction Status Date / Time No Known Allergies Allergy Verified 07/23/25 11:30 Review of Systems Review of Systems: CONSTITUTIONAL: Den reports malaise, chills, sweats EYES: Denies visual changes, redness, or discharge. ENT: Reports rhinorrhea, congestion, sinus pain CARDIOVASCULAR: Denies chest pain, palpitations, or edema. RESPIRATORY: Reports cough. Denies dyspnea. GASTROINTESTINAL: Denies abdominal pain, diarrhea. Reports nausea, vomiting SKIN: Denies rash or itching. MUSCULOSKELETAL: Reports myalgia. NEUROLOGIC: Reports headache. 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 There is no relevant family history pertinent to the presenting complaint Exam Narrative: GENERAL: Well-appearing, well-nourished, and in no acute distress. HEAD: Normocephalic EYES: PERRLA, conjunctivae clear. EOMI, no nystagmus ENT: Nares clear. Mucous membranes moist. TM pearly antunez with dull light reflex bilaterally; no tragal tenderness. Oropharynx erythematous without lesions. Tonsils not enlarged and without exudate, no drooling, no hoarseness, no trismus, uvula midline. NECK: Supple. No lymphadenopathy CHEST: Clear to auscultation, breath sounds equal. No wheezing, rhonchi, rales, or stridor. No respiratory distress, speaks in full sentences. HEART: Regular rate and rhythm. No murmur heard. SKIN: Warm, dry, no rash. NEURO: Alert and oriented x3. No focal deficits. Cranial nerves 2-12 grossly intact PSYCH: Normal mood and affect Course Course Emergency Course: Patient is aware of diagnosis, understands and agrees to treatment plan. Anticipatory guidance given. Patient agrees to follow-up as directed and is aware of reasons to seek care at the emergency department. Portions of this record may have been created with voice recognition software Level of Care: Express Care Visit Vital Signs Vital signs: Vital Signs Temperature 97.2 F L 07/23/25 11:38 Pulse Rate 77 07/23/25 11:38 Respiratory Rate 20 07/23/25 11:38 Blood Pressure 144/86 H 07/23/25 11:38 Pulse Oximetry 98 07/23/25 11:38 Oxygen Delivery Room Air 07/23/25 11:38 Temperature 97.2 F L 07/23/25 11:38 Pulse Rate 77 07/23/25 11:38 Respiratory Rate 20 07/23/25 11:38 Blood Pressure 144/86 H 07/23/25 11:38 Pulse Oximetry 98 07/23/25 11:38 Oxygen Delivery Room Air 07/23/25 11:38 Reviewed. MDM - URI/Sore Throat MDM Narrative Medical decision making narrative: Differential diagnosis considered: Shah virus, strep pharyngitis, allergic rhinitis, upper respiratory tract infection, sinusitis, rhinosinusitis, nasopharyngitis. viral pharyngitis, otitis media, otitis externa, pneumonia, bronchitis, viral cough syndrome, viral syndrome, and influenza. Exam findings show no acute concerns or changes; patient is non-toxic appearing and is in no distress. Patient is appropriate for outpatient treatment and follow-up. Lab Data Attestation: I reviewed the patient's lab results. Labs: Lab Results 07/23/25 Range/Units 11:53 POC Influenza A Ag Negative (Negative) POC Influenza B Ag Negative (Negative) POC SARS CoV-2 Ag Negative (Negative) Critical Care Time Critical Care Time Critical Care Time: No Discharge Plan Discharge Clinical Impression: Viral infection Patient Disposition: Home Condition: Stable Instructions: Viral Syndrome (ED) Additional Instructions: Your rapid COVID and flu tests are negative Your rapid strep swab was negative today at [facility]. A throat culture will be sent to the laboratory for further testing. If the test is positive, you will receive a phone call within 48 hours and an appropriate antibiotic will be initiated at that time. Your symptoms are likely due to a viral illness, which is not treated with antibiotics. Viral symptoms can be present for up to a few weeks. -Take strict precautions to prevent the spread of your virus. Be diligent about covering your cough (even when you are alone) and washing your hands frequently. -You may contagious until you have been symptom and/or fever free for 24 hours without fever reducing medicine -Alternate Ibuprofen and Tylenol for pain and fever relief (per package directions) -Drink plenty of fluid - drink fluid with electrolytes such as Gatorade or other oral re-hydration solution. Avoid caffeine, which can make dehydration worse. -Get plenty of rest to help your body heal. -Use a cool mist humidifier for chest and nasal congestion. -Eat RAW honey or use cough drops to ease throat discomfort -Do not smoke or expose children to secondhand smoke -Wash your hands frequently. -Please follow-up with your primary care doctor in the next 1-2 days if your symptoms do not improve. -If you have any worsening of symptoms or any other concerns please go to the ED immediately. -Please take medications as prescribed and continue taking your home medications as usual. Patient Language: Macedonian Prescriptions: New methylprednisolone [Medrol (Isak)] 4 mg tablets,dose pack See Rx Instructions .ROUTE .COMPLEX Qty: 21 0RF Rx Instructions: orally per package directions promethazine 25 mg tablet 25 mg PO TID PRN (Reason: nausea and vomiting) Qty: 14 0RF No Action aspirin 81 mg tablet,delayed release (DR/EC) 81 mg PO DAILY hydrochlorothiazide 25 mg tablet 25 mg PO DAILY lisinopril 40 mg tablet 40 mg PO DAILY atorvastatin 40 mg tablet 40 mg PO DAILY niacin 500 mg tablet 500 mg PO DAILY folic acid 1 mg tablet 1 mg PO DAILY albuterol sulfate 90 mcg/actuation HFA aerosol inhaler 2 puff INHALATION DAILY liraglutide [Victoza 3-Isak] 0.6 mg/0.1 mL (18 mg/3 mL) pen injector 0.6 mg SUBCUT DAILY gabapentin 600 mg tablet 600 mg PO DAILY nitroglycerin 0.4 mg tablet, sublingual 0.4 mg sublingual PRN PRN (Reason: Angina) omeprazole 20 mg capsule,delayed release(DR/EC) 20 mg PO DAILY clopidogrel 75 mg tablet nifedipine 60 mg tablet extended release PO insulin glargine [Lantus Solostar U-100 Insulin] 100 unit/mL (3 mL) insulin pen SUBCUT tramadol 50 mg tablet 50 mg PO DIRECTED Follow-up/Referrals: Byron,Eriberto Malone MD [Primary Care Provider] Stand Alone Forms: Work/School Release IP Time of Disposition: 12:18
[2025-07-23 12:17] LABS: EDSTREPNEGPOS1 Negative (Negative)
== END 2025-07-23 12:23 | disposition home or self-care (01) ==
PROVIDERS: Emergency Provider Nurse Practitioner; PCP Family Medicine
DX: B34.9 Viral infection, unspecified (principal); Z20.822 Contact with and (suspected) exposure to COVID-19; F17.210 Nicotine dependence, cigarettes, uncomplicated; I10 Essential (primary) hypertension; E11.9 Type 2 diabetes mellitus without complications; Z79.4 Long term (current) use of insulin; J45.909 Unspecified asthma, uncomplicated; Z86.73 Personal history of transient ischemic attack (TIA), and cerebral infarction without residual deficits; Z79.82 Long term (current) use of aspirin
CPT/HCPCS: 87081; 87426; 87804; 87880; 99213; G0463